=== PATIENT | female | born 1980 ===

== ENCOUNTER 2018-11-23 10:07 | Emergency (ER) | payer OTHER ==
[~2018-11-23] VITALS: Ht 162.6 cm; Wt 58.5 kg
[2018-11-23] MEDS ORDERED: SYNTHROID175 MCG (10:13)
== END 2018-11-23 14:41 | disposition home or self-care (01) ==
LOC: ER 10:07
DX: K29.70 Gastritis, unspecified, without bleeding (principal); R10.2 Pelvic and perineal pain